=== PATIENT | male | born 1965 | race Hispanic/Latino ===

== ENCOUNTER 2017-04-28 11:49 | Emergency (ER) | payer OTHER ==
[2017-04-28] MEDS ORDERED: ORPHENADRINE CITRATE 30 MG/ML AMP IM ONE (12:26)
[2017-04-28] MEDS ORDERED: KETOROLAC TROMETHAMINE INJ 60 MG/2 ML VIAL IM ONE (12:26)
[2017-04-28] MEDS ORDERED: HYDROcodone 10MG/APAP 325MG 1 EA TAB PO ONE (12:27)
[2017-04-28 12:28] VITALS: TEMP 97.8
--- NOTE | 2017-04-28 12:30 | ED.PDOC ---
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 PT REPORTS A SIMILAR BACK INJURY 1 WEEK AGO. PT WAS PRESCRIBED PAIN MEDICATION AND MUSCLE RELAXANT THAT IMPROVED HIS PAIN HOWEVER, PATIENT RE-AGGRAVATED INJURY TODAY. Timing/Duration: 1-3 hours Quality/Severity: moderate Back Pain Location: lumbar spine, paraspinous muscles Back Pain Radiation: buttocks Method of Injury/Prior Injury: prior injury Improving Factors: immobilization, rest Worsening Factors: movement Associated Symptoms: muscle spasms, lower back pain Allergies/Adverse Reactions: Allergies NO KNOWN ALLERGY Allergy (Unverified 01/01/15 00:00) Home Medications: Ambulatory Orders Glipizide 5 mg PO DAILY@1700 01/01/15 Lisinopril/Hctz 20-12.5 mg [Zestoretic 20-12.5 mg] 1 ea PO DAILY 01/01/15 Metformin HCl [Glucophage] 1,000 mg PO BID 01/01/15 Pantoprazole Tablet [Protonix] 1 ea PO DAILY 01/01/15 glipiZIDE [Glucotrol] 10 mg PO DAILY 01/01/15 Acetaminophen W/ Codeine [Tylenol W/ CODEINE #3] 1 ea PO Q4HR PRN #24 04/28/17 Diazepam [Valium] 2 mg PO Q6HR PRN #14 tab 04/28/17 Ibuprofen 800 mg PO Q8HR PRN #30 tab 04/28/17 Review of Systems - Review of Systems Constitutional: Denies: chills, fever Respiratory: Denies: cough, orthopnea, short of breath Cardiology: Denies: chest pain, palpitations Gastrointestinal/Abdominal: Denies: abdominal pain, nausea Musculoskeletal: States: see HPI, back pain, muscle pain Past Medical History (General) - Patient Medical History Hx Seizures: No Hx Stroke: No Hx Asthma: No Hx of COPD: No Hx Cardiac Disorders: Yes Hx Congestive Heart Failure: No Hx Pacemaker: No Hx Hypertension: Yes Hx Diabetes: Yes - type II Hx Gastroesophageal Reflux: Yes Hx MRSA: No - Vaccination History Hx Tetanus, Diphtheria Vaccination: Yes - Social History Hx Alcohol Use: No Hx Substance Use: No Hx Physical Abuse: No Hx Emotional Abuse: No - Female History Patient : No Family Medical History - Family History Father Family History: No Known Living Status: Mother Age (years): 80 Living Status: Still Living Hx Family Asthma: No Hx Family Congestive Heart Failure: No Hx Family Hypertension: No Hx Family Stroke: No Hx Cardiac Disease: No Hx Family Diabetes: No Hx Family Cancer: No Physical Exam - Physical Exam General Appearance: Alert, Obese, Well Developed, Well Groomed, Well Hydrated Neck Exam: normal alignment, normal inspection Cardiovascular/Respiratory: no JVD, no respiratory distress Gastrointestinal/Abdominal: non tender, soft Back Exam: other - DIFFUSE LUMBAR AND PARALUMBAR TENDERNESS, NEGATIVE STAIGHT LEG RAISE Extremity Exam: normal range of motion, non-tender Neurologic: no motor/sensory deficits, alert, normal mood/affect, oriented x 3 Skin Exam: normal color, warm/dry Departure - Departure Clinical Impression: Lumbar strain Time of Disposition: 12:45 Disposition: Discharge to Home or Self Care Condition: Good Departure Forms: ED Discharge - Pt. Copy, Patient Portal Self Enrollment Diet: resume usual diet Activity: increase activity as tolerated, no lifting Referrals: [facility] [Provider Group] - 1-2 Weeks Prescriptions: Acetaminophen W/ Codeine [Tylenol W/ CODEINE #3] 1 ea PO Q4HR PRN #24 PRN Reason: Pain Diazepam [Valium] 2 mg PO Q6HR PRN #14 tab PRN Reason: Muscle Spasms Ibuprofen 800 mg PO Q8HR PRN #30 tab PRN Reason: Pain Home Medications: Ambulatory Orders Glipizide 5 mg PO DAILY@1700 01/01/15 Lisinopril/Hctz 20-12.5 mg [Zestoretic 20-12.5 mg] 1 ea PO DAILY 01/01/15 Metformin HCl [Glucophage] 1,000 mg PO BID 01/01/15 Pantoprazole Tablet [Protonix] 1 ea PO DAILY 01/01/15 glipiZIDE [Glucotrol] 10 mg PO DAILY 01/01/15 Acetaminophen W/ Codeine [Tylenol W/ CODEINE #3] 1 ea PO Q4HR PRN #24 04/28/17 Diazepam [Valium] 2 mg PO Q6HR PRN #14 tab 04/28/17 Ibuprofen 800 mg PO Q8HR PRN #30 tab 04/28/17 Additional Instructions: NO WORK OR HEAVY LIFTING FOR THE NEXT 2 DAYS. MAY RETURN TO WORK ON MONDAY.
[2017-04-28 13:28] VITALS: BP 114/75; O2SAT 96
== END 2017-04-28 13:25 | disposition home or self-care (01) ==
LOC: ER 11:49
DX: S39.012A Strain of muscle, fascia and tendon of lower back, initial encounter (principal); E11.9 Type 2 diabetes mellitus without complications; I10 Essential (primary) hypertension; K21.9 Gastro-esophageal reflux disease without esophagitis; Z79.899 Other long term (current) drug therapy; Z79.84 Long term (current) use of oral hypoglycemic drugs; X50.0XXA Overexertion from strenuous movement or load, initial encounter; Y92.89 Other specified places as the place of occurrence of the external cause; Y99.0 Civilian activity done for income or pay
CPT/HCPCS: J1885; J2360